=== PATIENT | female | born 1980 | race African-American/Black ===

== ENCOUNTER 2017-06-06 05:26 | Inpatient (IN) | payer BC, OTHER ==
[2017-06-02 15:47] VITALS: BMI 26.7
[2017-06-06] MEDS ORDERED: MIDAZOLAM HCL 2 MG/2 ML SINGLE DOSE VIAL ONE ×2 (09:32→09:33)
[2017-06-06] MEDS ORDERED: DEXAMETHASONE SOD PHOSPHATE/PF 10 MG/ML SDV ONE (09:36)
[2017-06-06] MEDS ORDERED: ROPIVACAINE HCL 0.5% 30ML VIAL ONE (09:36)
[2017-06-06] MEDS ORDERED: VASOPRESSIN 20 UNITS/ML VIAL IV ONE (10:04)
[2017-06-06] MEDS ORDERED: PROPOFOL 20 ML ONE (10:30)
[2017-06-06] MEDS ORDERED: ROCURONIUM BROMIDE 50 MG/5 ML VIAL ONE (10:30)
[2017-06-06] MEDS ORDERED: ceFAZolin SODIUM 1 GM VIAL IVPB ONE (10:32)
[2017-06-06] MEDS ORDERED: oxyCODONE HCL 5 MG TABLET PO PRN (10:34)
[2017-06-06] MEDS ORDERED: IBUPROFEN 800 MG/8 ML IJ IVPB PRN (10:34)
--- NOTE | 2017-06-06 10:34 | HP ---
History & Physical Update - History History: No Change - Physical Physical: No Change - Assessment Assessment: No Change - Plan Plan: No Change
[2017-06-06] MEDS ORDERED: DESFLURANE GAS 240 ML BOTTLE IH ONE (10:35)
--- NOTE | 2017-06-06 10:39 | OP ---
Operative Note - Note: Operative Date: 06/06/17 Pre-Operative Diagnosis: Submucosal myoma. anemia. menorrhagia. leiomyomatous uterus Operation: Abdominla myomectomy Post-Operative Diagnosis: Same as Pre-op Surgeon: Shagufta Palomino Library Circulation Clerk: Amy Forte Anesthesia: General Estimated Blood Loss (mls): 10 Operative Report Dictated: Yes
[2017-06-06] MEDS ORDERED: DEXAMETHASONE SOD PHOSPHATE 4 MG/1 ML VIAL ONE (10:43)
[2017-06-06] MEDS ORDERED: DEXTROSE 5%-LACTATED RINGERS 1,000 ML IV SCH (10:45)
[2017-06-06] MEDS ORDERED: ceFAZolin SODIUM 1 GM VIAL ONE (10:47)
[2017-06-06] MEDS ORDERED: GLYCOPYRROLATE 0.2 MG/1 ML VIAL ONE ×2 (11:08→11:17)
[2017-06-06] MEDS ORDERED: NEOSTIGMINE METHYLSULFATE 0.5 MG/ML - 10 ML MDV ONE (11:18)
[2017-06-06] MEDS ORDERED: PROMETHAZINE HCL 25 MG/1 ML VIAL IVPB PRN (11:50)
[2017-06-06] MEDS ORDERED: DEXAMETHASONE SOD PHOSPHATE 4 MG/1 ML VIAL IVPUSH PRN (11:50)
[2017-06-06] MEDS ORDERED: ONDANSETRON 4 MG/2 ML VIAL IVPUSH PRN (11:50)
[2017-06-06] MEDS ORDERED: LACTATED RINGERS SOLUTION 1,000 ML IV SCH (12:00)
[2017-06-06] MEDS: HYDROmorphone *PCA* 10MG/50ML DISP.SYRIN PCA SCH ×2 (12:15→14:31)
[2017-06-06] MEDS: CEFAZOLIN 2 GM/D5W 50 ML IVPB SCH (17:49)
[2017-06-06 18:51] LABS: MCH 21.8 pg (25.7-33.7); MCHC 29.9 g/dl (32.0-36.0); MEAN CELL VOLUME 73.1 fl (80-96); MEAN PLT VOLUME 9.4 fl (7.5-11.1); PLATELET COUNT 396 K/MM3 (134-434); RDW 29.3 % (11.6-15.6); WHITE BLOOD COUNT 13.1 K/mm3 (4.0-10.0)
[2017-06-06 21:33] LABS: ANISOCYTOSIS 3+; HYPOCHROMIA 2+; MACROCYTOSIS 1+; MICROCYTOSIS 2+; PLATELET ESTIMATE ADEQUATE (NORMAL)
[2017-06-07] MEDS: CEFAZOLIN 2 GM/D5W 50 ML IVPB SCH (01:07)
[2017-06-07 07:20] LABS: BASOPHIL 0.1 % (0-2.0); MCH 21.3 pg (25.7-33.7); MCHC 29.5 g/dl (32.0-36.0); MEAN CELL VOLUME 72.2 fl (80-96); MEAN PLT VOLUME 8.8 fl (7.5-11.1); NEUTROPHILS 81.1 % (42.8-82.8); PLATELET COUNT 388 K/MM3 (134-434)
--- NOTE | 2017-06-07 08:19 | OP ---
DATE OF OPERATION: 06/06/2017 PREOPERATIVE DIAGNOSES: Leiomyomatous uterus, menorrhagia, and anemia. OPERATION: Abdominal myomectomy. POSTOPERATIVE DIAGNOSES: Leiomyomatous uterus, menorrhagia, and anemia. SURGEON: Shagufta Palomino MD MORTGAGE LOAN CLOSER: Amy Forte DO ANESTHESIA: General. ANESTHESIOLOGIST: Alex More MD DESCRIPTION OF PROCEDURE: Patient was taken to the operating room, placed in supine position, prepped and draped in the usual sterile fashion. Starks catheter was inserted into the bladder. A timeout was performed in accordance to hospital regulation. After the patient was prepped and draped. A Pfannenstiel skin incision was made with a scalpel. Cautery was then used to go through the layers of abdominal wall to the level of the fascia. Fascia was cut in the midline. Cautery was then used to open the fascia in the following fashion. Charissa was then used to bluntly and sharply dissect the rectus muscles. Fascia muscle split in the midline. Peritoneal cavity was entered and carried upward and downward. Uterus exteriorized. A 6-cm submucosal myoma was palpated. Uterus was exteriorized, and tourniquet was placed on a clear space of the broad ligament. Pitressin was infiltrated, and a transverse anterior incision was made. Using blunt and sharp dissection, a 6- cm myoma was enucleated out. Endometrium was then closed separately carefully not placing suture within endometrium using 2-0 Vicryl. Intramuscular layer of the uterus was closed using 0 Vicryl suture, and serosa was then closed using 2-0 V-Loc suture. Hemostasis was achieved. Uterus interiorized. Interceed was placed. Abdominal cavity cleaned with clean lap pad. Abdominal sweep done. Peritoneum closed using 0 Vicryl suture. Fascia was then closed using 0 Vicryl suture in 2 parts. Muscle was approximated in midline using 0 Vicryl suture. Skin was then closed using 3-0 Vicryl in subcuticular fashion. Wound was washed and dressed. The patient tolerated the procedure well. Pack count was correct. ESTIMATED BLOOD LOSS: 10 mL Enma [id number] MTDD
[2017-06-07] MEDS ORDERED: HYDROmorphone HCL CARPU-JECT 1 MG/1 ML DISP.SYRIN IVPB PRN (08:21)
--- NOTE | 2017-06-07 08:21 | PN ---
Progress Note (short form) - Note Progress Note: Post op day#1.S/P Abdominal myomectomy under GA uneventful.Patient stable and c/ o pain score of 3-4/10.Will DC TEST DRIVER and put patient PRN pain medication.No any anesthesia related problem.Patient DC from the anesthesia care.
--- NOTE | 2017-06-07 09:17 | PN ---
Progress Note, Physician Chief Complaint: Pt seen/evaluated, doing well. Pain controlled. Tolerating clears. No flatus yet. Starks catheter in place draining clear yellow urine. Not yet ambulating. Denies CP/SOB/F/C/HUNT. NO other complaints. - Current Medication List Current Medications: Active Medications Dexamethasone Sodium Phosphate (Decadron Injection -) 4 mg IVPUSH ONCE PRN PRN Reason: NAUSEA AND/OR VOMITING Diphenhydramine HCl (Benadryl Injection -) 12.5 mg IVPUSH ONCE PRN PRN Reason: FOR ITCHING Last Admin: 06/06/17 12:35 Dose: 12.5 mg Enoxaparin Sodium (Lovenox -) 40 mg SQ DAILY ADRIÁN Fentanyl (Sublimaze Injection -) 50 mcg IVPUSH [id number] PRN PRN Reason: PAIN Stop: 06/09/17 11:51 Last Admin: 06/06/17 12:10 Dose: 50 mcg Hydromorphone HCl (Dilaudid Injection -) 1 mg IVPB Q4H PRN PRN Reason: PAIN Dextrose/Lactated Ringer's (D5-Lr -) 1,000 mls @ 125 mls/hr IV ASDIR ADRIÁN Last Admin: 06/06/17 12:15 Dose: 225 mls Lactated Ringer's (Lactated Ringers Solution) 1,000 mls @ 125 mls/hr IV ASDIR ADRIÁN Ibuprofen (Caldolor Injection -) 800 mg IVPB Q8H PRN PRN Reason: FEVER Oxycodone HCl (Roxicodone -) 5 mg PO Q4H PRN PRN Reason: PAIN Oxycodone HCl (Roxicodone -) 10 mg PO Q4H PRN PRN Reason: PAIN Promethazine HCl (Phenergan Injection -) 12.5 mg IVPB Q6H PRN PRN Reason: NAUSEA AND/OR VOMITING Simethicone (Mylicon -) 80 mg PO Q4H PRN PRN Reason: GAS - Objective Vital Signs: Vital Signs Temperature 98 F 06/07/17 08:46 Pulse Rate 61 06/07/17 08:46 Respiratory Rate 20 06/07/17 08:46 Blood Pressure 124/67 06/07/17 08:46 O2 Sat by Pulse Oximetry (%) 100 06/06/17 14:34 Constitutional: Yes: Well Nourished, No Distress, Calm Eyes: Yes: Conjunctiva Clear, EOM Intact HENT: Yes: Atraumatic, Normocephalic Neck: Yes: Supple, Trachea Midline Cardiovascular: Yes: Regular Rate and Rhythm Respiratory: Yes: Regular, CTA Bilaterally Gastrointestinal: Yes: Normal Bowel Sounds, Soft Wound/Incision: Yes: Clean/Dry, Well Approximated Neurological: Yes: Alert, Oriented Labs: CBC, BMP 06/07/17 06:30 Problem List - Problems (1) Status post myomectomy Code(s): Z98.890 - OTHER SPECIFIED POSTPROCEDURAL STATES (2) Anemia Code(s): D64.9 - ANEMIA, UNSPECIFIED Assessment/Plan 36 y/o POD#1 s/p abdominal myomectomy, stable and doing well - AFVSS - Hgb 7.6 post op - pt asymptomatic, will monitor. If heavy bleeding or becomes symptomatic will recheck CBC - advance diet as tolerated, PO pain meds - D/C SAGGER PREPARER - encourage ambulation
[2017-06-07] MEDS ORDERED: ENOXAPARIN NA (PORCINE) 40 MG/0.4 ML DISP.SYRIN SQ ONE (10:00)
[2017-06-07] MEDS ORDERED: PCA PUMP KEY 1 EACH EACH ONE (10:31)
--- NOTE | 2017-06-07 13:17 | PATH ---
Surgical Pathology Report Patient Name: RUIBA XIONG [facility]. Rec. #: [id number] /Age/Gender: 1980 (Age: 36) / F Account: [id number] Location: [facility] OBS/FILING OR REGISTRY CLERK Taken: 06/06/2017 Received: 06/06/2017 Reported: 06/07/2017 Physicians: Shagufta Palomino M.D. Specimen(s) Received FIBROIDS Clinical History Fibroids Final Diagnosis UTERUS, MYOMECTOMY: LEIOMYOMA, 97 GRAMS. Electronically Signed Balaji Dodson M.D. Gross Description Received in formalin labeled "fibroid," is a 97 g, 7.0 x 5.0 x 5.0 cm fibroid. Sectioning reveals soft landry parenchyma with a whorled architecture. No hemorrhage or necrosis is identified. Travograph Operator sections are submitted in 4 cassettes. DL/06/06/2017 saudi/06/06/2017
[2017-06-07] MEDS: SIMETHICONE 80 MG TAB.CHEW (FP) PO PRN ×3 (13:51→22:17)
[2017-06-07] MEDS: oxyCODONE HCL 5 MG TABLET PO PRN ×2 (18:31→22:17)
--- NOTE | 2017-06-07 22:31 | DS ---
Physical Exam-WEBSPHERE PORTAL ARCHITECT Vital Signs: Vital Signs Temperature 99.5 F 06/07/17 22:00 Pulse Rate 92 H 06/07/17 22:00 Respiratory Rate 18 06/07/17 22:00 Blood Pressure 126/75 06/07/17 22:00 O2 Sat by Pulse Oximetry (%) 99 06/07/17 21:00 Constitutional: Yes: Well Nourished, No Distress Neck: Yes: WNL Cardiovascular: Yes: WNL Gastrointestinal: Yes: WNL, Normal Bowel Sounds, Soft Extremities: Yes: WNL Edema: No Wound/Incision: Yes: Steri Strips, Open to air Labs: CBC, BMP 06/07/17 06:30 Discharge Summary Reason For Visit: SUBMUCOSAL MYOMA/ANEMIA/MENORRHAGIA Current Active Problems Anemia (Acute) Status post myomectomy (Acute) Procedures: Principal: Abdominal myomectomy Hospital Course: Unremarkable Condition: Good - Instructions Diet, Activity, Other Instructions: Dr. Shagufta Palomino Senior Php Web Developer discharge instructions Physical activity Resume your normal everyday activity as tolerated no heavy lifting or exercise until seen by your surgeon. You may walk unlimited zak of and climb stairs. You may resume driving the car when you feel safe and comfortable behind the wheel. No sexual activity as instructed by Dr. Palomino. Wound care If you have a bandage, leave it on, and keep dry for 48-72 hours. After that time discard the outer bandage. If they are tapes on the skin under the out of bandage leave them in place. They will peel off in the next 7 to 10 days. Do Not Peel them off. You may shower the day after surgery. If there are tapes present on the skin, you may shower over them. Diet There are no dietary restrictions. Eat healthy, high-fiber foods. Drink 6 to 8 glasses of liquid each day. This will assist in keeping your bowels are regular. Pain management You may take Tylenol or acetaminophen or Ibuprofen (for example, Motrin, Advil etc.) from my pain prescription medication is ordered should be taken as prescribed for moderate to severe pain. Call Dr. Palomino for any of the following: Severe pain not relieved by medication Fever of 101 or higher Excessive bleeding or drainage on dressing Inability to urinate Call the office at [phone] for an appointment in seven days. Disposition: HOME - Home Medications Comprehensive Discharge Medication List: Ambulatory Orders Aspirin/Acetaminophen/Caffeine [Excedrin Migraine Caplet] 2 each PO PRN PRN Ibuprofen [Advil -] 400 mg PO TID PRN 06/02/17 Iron,Carbonyl/Ascorbic Acid [Vitron-C Tablet] 1 each PO DAILY 06/06/17 Ibuprofen [Motrin -] 600 mg PO QID PRN #28 tablet 06/07/17
[2017-06-08] MEDS: SIMETHICONE 80 MG TAB.CHEW (FP) PO PRN (06:40)
[2017-06-08] MEDS: oxyCODONE HCL 5 MG TABLET PO PRN (06:40)
--- NOTE | 2017-06-08 07:03 | PN ---
Progress Note (SOAP) - Subjective Chief Complaint: Pt doing well desires to go home - Current Medications Current Medications: Active Medications Dexamethasone Sodium Phosphate (Decadron Injection -) 4 mg IVPUSH ONCE PRN PRN Reason: NAUSEA AND/OR VOMITING Diphenhydramine HCl (Benadryl Injection -) 12.5 mg IVPUSH ONCE PRN PRN Reason: FOR ITCHING Last Admin: 06/06/17 12:35 Dose: 12.5 mg Enoxaparin Sodium (Lovenox -) 40 mg SQ DAILY ADRIÁN Fentanyl (Sublimaze Injection -) 50 mcg IVPUSH [id number] PRN PRN Reason: PAIN Stop: 06/09/17 11:51 Last Admin: 06/06/17 12:10 Dose: 50 mcg Hydromorphone HCl (Dilaudid Injection -) 1 mg IVPB Q4H PRN PRN Reason: PAIN Dextrose/Lactated Ringer's (D5-Lr -) 1,000 mls @ 125 mls/hr IV ASDIR ADRIÁN Last Admin: 06/06/17 12:15 Dose: 225 mls Lactated Ringer's (Lactated Ringers Solution) 1,000 mls @ 125 mls/hr IV ASDIR ADRIÁN Ibuprofen (Caldolor Injection -) 800 mg IVPB Q8H PRN PRN Reason: FEVER Oxycodone HCl (Roxicodone -) 5 mg PO Q4H PRN PRN Reason: PAIN Last Admin: 06/07/17 13:51 Dose: 5 mg Oxycodone HCl (Roxicodone -) 10 mg PO Q4H PRN PRN Reason: PAIN Last Admin: 06/08/17 06:40 Dose: 10 mg Promethazine HCl (Phenergan Injection -) 12.5 mg IVPB Q6H PRN PRN Reason: NAUSEA AND/OR VOMITING Simethicone (Mylicon -) 80 mg PO Q4H PRN PRN Reason: GAS Last Admin: 06/08/17 06:40 Dose: 80 mg - Objective Vital Signs: Vital Signs Temperature 99.6 F 06/08/17 06:44 Pulse Rate 69 06/08/17 06:44 Respiratory Rate 18 06/08/17 06:44 Blood Pressure 132/69 06/08/17 06:44 O2 Sat by Pulse Oximetry (%) 99 06/07/17 21:00 Constitutional: Yes: Well Nourished, No Distress Gastrointestinal: Yes: WNL, Normal Bowel Sounds, Soft Extremities: Yes: WNL Edema: No Wound/Incision: Yes: Clean/Dry, Well Approximated, Steri Strips Neurological: Yes: WNL, Alert, Oriented Labs Lab Results: CBC, BMP 06/07/17 06:30
[2017-06-08] MEDS ORDERED: IBUPROFEN 600 MG TABLET (FP) PO PRN (07:33)
[2017-06-08 08:23] VITALS: BP 123/83; PULSE 85; TEMP 99.3
[2017-06-08 08:49] LABS: MCH 21.1 pg (25.7-33.7); MCHC 29.2 g/dl (32.0-36.0); MEAN CELL VOLUME 72.2 fl (80-96); MEAN PLT VOLUME 9.1 fl (7.5-11.1); PLATELET COUNT 420 K/MM3 (134-434); WHITE BLOOD COUNT 11.4 K/mm3 (4.0-10.0)
[2017-06-08] MEDS ORDERED: ENOXAPARIN NA (PORCINE) 40 MG/0.4 ML DISP.SYRIN SQ SCH (10:00)
== END 2017-06-08 09:30 | disposition home or self-care (01) | DRG 743 ==
LOC: JSAMEDAYSX 05:26 → EDSTATUS 10:00 → J3W 14:18
PROVIDERS: ADMIT Obstetrics & Gynecology; ATTEND Obstetrics & Gynecology
PROC: 0UB90ZZ Excision of Uterus, Open Approach (ICD-10-PCS; principal; 2017-06-06 10:00)
DX: D25.0 Submucous leiomyoma of uterus (principal); N92.0 Excessive and frequent menstruation with regular cycle; D64.9 Anemia, unspecified
CPT/HCPCS: 36415; 84703; 85025; 85027; 88305-TC; 94760

== ENCOUNTER 2019-02-26 10:00 | Inpatient (IN) | payer BC, OTHER ==
[2019-02-26] MEDS ORDERED: ELECTROLYTE-148 SOLN 500 ML IV ONE (10:33)
[2019-02-26] MEDS ORDERED: CITRIC ACID/SODIUM CITRATE 30 ML UNIT-DOSE CUP PO ONE (10:33)
--- NOTE | 2019-02-26 10:33 | HP ---
Past Medical History - Admission History of Present Illness: 38 y/o female with SIUP at 37.2 weeks here for scheduled delivery. Pt has h/o myomectomy and is also gestational HTN on Labetalol 400mg TID which is the indication for delivery at 37 weeks gestation. Pt denies HUNT/ RUQ pain or changes in vision. Most recent HELLP labs WNL. History Source: Patient, Medical Record Limitations to Obtaining History: No Limitations - Past Medical History Cardiovascular: Yes: HTN Pulmonary: No: Asthma Gastrointestinal: No: GERD Hepatobiliary: No: Hepatitis B Renal/: No: UTI Reproductive: Yes: Fibroids. No: PID, Polycystic Ovary Syndrome ...: 3 ...Para: 2 Heme/Onc: Yes: Anemia Infectious Disease: No: HIV, STD's Psych: No: Anxiety, Depression - Past Surgical History Hx Myomectomy: Yes Hx Transabdominal Cerclage: No - Smoking History Smoking history: Never smoked Have you smoked in the past 12 months: No - Alcohol/Substance Use Hx Alcohol Use: Yes (1-2/week) - Social History Usual Living Arrangement: Yes: With Spouse ADL: Independent History of Recent Travel: No Home Medications - Allergies Allergies/Adverse Reactions: Allergies Allergy/AdvReac Type Severity Reaction Status Date / Time No Known Allergies Allergy Verified 02/26/19 10:59 - Home Medications Home Medications: Ambulatory Orders Labetalol HCl [Normodyne -] 400 mg PO TID 12/20/18 Prenat 115/Iron Fum/Folic/Dss [ 19 Tablet] 1 tab PO DAILY 01/20/19 Review of Systems - Review of Systems Constitutional: reports: No Symptoms Eyes: reports: No Symptoms HENT: reports: No Symptoms Neck: reports: No Symptoms Cardiovascular: reports: No Symptoms Respiratory: reports: No Symptoms Gastrointestinal: reports: No Symptoms Genitourinary: reports: No Symptoms Breasts: reports: No Symptoms Reported Musculoskeletal: reports: No Symptoms Integumentary: reports: No Symptoms Neurological: reports: No Symptoms Endocrine: reports: No Symptoms Hematology/Lymphatic: reports: No Symptoms Physical Exam - Maternity Constitutional: Yes: Well Nourished, No Distress, Calm Eyes: Yes: EOM Intact HENT: Yes: Atraumatic Neck: Yes: Supple Cardiovascular: Yes: Regular Rate and Rhythm Lungs: Clear to auscultation - Abdominal Exam/OB Fundal Height: 37 Number of Fetuses: Single Presentation: Vertex Category: I - Vaginal Exam/OB Amniotic Membrane Status: Intact - Physical Exam Psychiatric: Yes: Alert, Oriented Hemorrhage Risk Assessment - Risk Factors Medium Risk Factors: Yes: Prior , uterine surgery,or multiple laparotomies Risk Score: 1 Risk Level: Medium Risk Problem List - Problems (1) Status post myomectomy Code(s): Z98.890 - OTHER SPECIFIED POSTPROCEDURAL STATES Assessment/Plan 38 y/o female with SIUP at 37.2 weeks here for scheduled delivery h/o myomectomy gestational HTN on Labetalol 400 TID NPO Starks Anesthesia to evaluate Nursery/Neonatology aware plan for scheduled c section
[2019-02-26 10:46] VITALS: BMI 31.4
[2019-02-26] MEDS ORDERED: OXYTOCIN 20 UNITS in 0.9% NS 20 UNIT/1,000 ML INFUS.BAG IV ONE (11:53)
[2019-02-26] MEDS ORDERED: METHYLERGONOVINE MALEATE 0.2 MG/1 ML AMP IM PRN (12:59)
[2019-02-26] MEDS: ELECTROLYTE-148 SOLN 1,000 ML IV SCH (13:05)
[2019-02-26] MEDS ORDERED: morphine SULFATE/PF 0.5 MG/ML (2cc Syringe - QUVA) ONE (13:13)
[2019-02-26] MEDS ORDERED: IBUPROFEN 600 MG TABLET (FP) PO PRN (13:26)
[2019-02-26] MEDS ORDERED: OXYTOCIN 10 UNITS/ML VIAL ONE (13:31)
[2019-02-26] MEDS ORDERED: ceFAZolin SODIUM 1 GM VIAL ONE (13:31)
[2019-02-26] MEDS ORDERED: LABETALOL HCL 200 MG TABLET (FP) PO SCH (14:00)
[2019-02-26] MEDS: OXYTOCIN 20 UNITS in 0.9% NS 20 UNIT/1,000 ML INFUS.BAG IV SCH (14:09)
[2019-02-26] MEDS: LABETALOL HCL 200 MG TABLET (FP) PO SCH ×2 (16:26→22:36)
--- NOTE | 2019-02-26 20:36 | OP ---
Operative Note - Note: Operative Date: 02/26/19 Pre-Operative Diagnosis: history of myomectomy, gestational HTN, AMA Operation: primary LTCS Post-Operative Diagnosis: Same as Pre-op Surgeon: Amy Forte Teletype Clerk: Roger Salazar Anesthesiologist/SCREW CUTTER: Abdirashid Roman Anesthesia: Spinal Specimens Removed: placenta Estimated Blood Loss (mls): 800 Operative Report Dictated: Yes
[2019-02-26] MEDS: IBUPROFEN 800 MG/8 ML IJ IVPB PRN (21:31)
[2019-02-27] MEDS: LABETALOL HCL 200 MG TABLET (FP) PO SCH ×3 (06:12→22:15)
[2019-02-27] MEDS: IBUPROFEN 800 MG/8 ML IJ IVPB PRN (08:00)
[2019-02-27 08:46] LABS: BASO % 0.1 % (0-2.0); EOS % 1.5 % (0-4.5); HEMOGLOBIN 10.3 GM/dL (10.7-15.3); LYMPH % 8.2 % (8-40); MCH 29.6 pg (25.7-33.7); MCHC 33.1 g/dl (32.0-36.0); MEAN CELL VOLUME 89.3 fl (80-96); MEAN PLT VOLUME 10.7 fl (7.5-11.1); MONO % 7.1 % (3.8-10.2); NEUT % 83.1 % (42.8-82.8); PLATELET COUNT 192 K/MM3 (134-434); RBC 3.47 M/mm3 (3.60-5.2); WHITE BLOOD COUNT 17.8 K/mm3 (4.0-10.0)
[2019-02-27] MEDS: PRENATAL VITAMINS W/ FOLIC ACID TABLET (FP) PO SCH (10:00)
--- NOTE | 2019-02-27 10:09 | PN ---
Post Progress Note - Subjective Subjective: 38 yo Para 3 with prior myomectomy, is status post primary . She's seen and evaluated, doing well. Post Day: 1 Type of Delivery: Primary C/S Vital Signs: Vital Signs Temperature 98.2 F 02/27/19 06:00 Pulse Rate 75 02/27/19 06:00 Respiratory Rate 18 02/27/19 09:00 Blood Pressure 111/70 02/27/19 06:00 O2 Sat by Pulse Oximetry (%) 98 02/26/19 14:55 Breast Exam: Yes: Soft Uterus: Yes: Fundus @ umbilicus Incision: Yes: Dressing dry and intact Abdomen/GI: Yes: Abdomen soft, Tolerating PO Lochia: Yes: Rubra Lochia, amount: Small Extremities: Yes: Calves non-tender Perineum: Yes: Intact Activity: Ambulating Problem List - Problems (1) Status post primary low transverse section Code(s): Z98.891 - HISTORY OF UTERINE SCAR FROM PREVIOUS SURGERY Assessment/Plan Status post primary Stable Continue routine post op care
[2019-02-27] MEDS: ELECTROLYTE-148 SOLN 1,000 ML IV SCH (12:42)
[2019-02-27] MEDS ORDERED: BISACODYL 10 MG SUPP.RECT RC PRN (12:59)
--- NOTE | 2019-02-27 14:18 | PN ---
Progress Note, Physician Chief Complaint: s/p csection post op day one History of Present Illness: under spinal anesthesia with duramorph for post op pain control - Current Medication List Current Medications: Active Medications Acetaminophen (Tylenol -) 650 mg PO Q4H PRN PRN Reason: PAIN LEVEL 1-5 Bisacodyl (Dulcolax Suppository -) 10 mg RC PRN PRN PRN Reason: CONSTIPATION Parenteral Electrolytes (Plasma-Lyte 148 -) 1,000 mls @ 125 mls/hr IV ASDIR [facility] Last Admin: 02/27/19 12:42 Dose: Not Given Oxytocin/Sodium Chloride (Normal Saline+20 Units Oxytocin -) 20 unit in 1,000 mls @ 125 mls/hr IV ASDIR [facility] Last Admin: 02/26/19 14:09 Dose: 125 mls/hr Ibuprofen (Motrin -) 600 mg PO Q4H PRN PRN Reason: PAIN LEVEL 1 - 3 Ibuprofen (Motrin -) 600 mg PO Q4H PRN PRN Reason: PAIN LEVEL 1-5 Ibuprofen (Caldolor Injection -) 800 mg IVPB Q8H PRN PRN Reason: PAIN SCALE 6-10 Last Admin: 02/27/19 08:00 Dose: 800 mg Labetalol HCl (Normodyne -) 400 mg PO TID [facility] Last Admin: 02/27/19 06:12 Dose: Not Given Methylergonovine Maleate (Methergine Injection -) 0.2 mg IM Q4H PRN PRN Reason: Excessive Bleeding (L&D) Oxycodone HCl (Roxicodone -) 5 mg PO Q4H PRN PRN Reason: PAIN LEVEL 4 - 6 Oxycodone HCl (Roxicodone -) 10 mg PO Q4H PRN PRN Reason: PAIN LEVEL 7 - 10 Multivit/Folic Acid/Iron ( Vitamins (Sjr) -) 1 tab PO DAILY [facility] Last Admin: 02/27/19 10:00 Dose: 1 tab Simethicone (Mylicon -) 80 mg PO Q4H PRN PRN Reason: GAS - Objective Vital Signs: Vital Signs Temperature 98.2 F 02/27/19 06:00 Pulse Rate 76 02/27/19 10:00 Respiratory Rate 18 02/27/19 12:00 Blood Pressure 123/73 02/27/19 10:00 O2 Sat by Pulse Oximetry (%) 98 02/26/19 14:55 Constitutional: Yes: Well Nourished Cardiovascular: Yes: WNL Respiratory: Yes: WNL Gastrointestinal: Yes: WNL Labs: CBC, BMP 02/27/19 07:37 Assessment/Plan No adverse effect of anesthetic, pain controlled, dept of anesthesiology will sign off care at this time
[2019-02-27] MEDS: IBUPROFEN 600 MG TABLET (FP) PO PRN (15:36)
[2019-02-27] MEDS: SIMETHICONE 80 MG TAB.CHEW (FP) PO PRN ×2 (15:36→20:28)
[2019-02-27] MEDS: oxyCODONE HCL 5 MG TABLET PO PRN ×2 (15:37→20:28)
[2019-02-27] MEDS: OXYTOCIN 20 UNITS in 0.9% NS 20 UNIT/1,000 ML INFUS.BAG IV SCH (16:06)
[2019-02-27] MEDS: ACETAMINOPHEN 325 MG TABLET (FP) PO PRN (20:28)
[2019-02-28] MEDS: oxyCODONE HCL 5 MG TABLET PO PRN ×3 (00:58→18:14)
[2019-02-28] MEDS: ACETAMINOPHEN 325 MG TABLET (FP) PO PRN (00:58)
[2019-02-28] MEDS: SIMETHICONE 80 MG TAB.CHEW (FP) PO PRN ×3 (00:59→18:13)
[2019-02-28] MEDS: LABETALOL HCL 200 MG TABLET (FP) PO SCH ×3 (06:00→21:36)
[2019-02-28] MEDS: PRENATAL VITAMINS W/ FOLIC ACID TABLET (FP) PO SCH (10:39)
[2019-02-28] MEDS: IBUPROFEN 600 MG TABLET (FP) PO PRN ×2 (12:04→18:13)
--- NOTE | 2019-02-28 12:34 | PN ---
Post Progress Note Post Day: 2 Type of Delivery: Primary C/S Vital Signs: Vital Signs Temperature 97.4 F L 02/28/19 09:30 Pulse Rate 93 H 02/28/19 09:30 Respiratory Rate 20 02/28/19 09:30 Blood Pressure 109/63 02/28/19 09:30 O2 Sat by Pulse Oximetry (%) 98 02/26/19 14:55 Breast Exam: Yes: Soft Uterus: Yes: Fundus Firm Incision: Yes: Sutures intact Abdomen/GI: Yes: Abdomen soft, Abdominal Distention, Passing flatus, Tolerating PO. No: Tender Lochia: Yes: Rubra Lochia, amount: Small Extremities: Yes: Calves non-tender, Edema (trace b/l LE edema, nonpitting) Perineum: Yes: Intact Activity: Ambulating - Labs Labs: CBC WBC 17.8 K/mm3 (4.0-10.0) H 02/27/19 07:37 RBC 3.47 M/mm3 (3.60-5.2) L 02/27/19 07:37 Hgb 10.3 GM/dL (10.7-15.3) L 02/27/19 07:37 Hct 31.0 % (32.4-45.2) L 02/27/19 07:37 MCV 89.3 fl (80-96) 02/27/19 07:37 MCH 29.6 pg (25.7-33.7) 02/27/19 07:37 MCHC 33.1 g/dl (32.0-36.0) 02/27/19 07:37 RDW 15.0 % (11.6-15.6) 02/27/19 07:37 Plt Count 192 K/MM3 (134-434) 02/27/19 07:37 MPV 10.7 fl (7.5-11.1) 02/27/19 07:37 Absolute Neuts (auto) 14.8 K/mm3 (1.5-8.0) H 02/27/19 07:37 Neutrophils % 83.1 % (42.8-82.8) H D 02/27/19 07:37 Lymphocytes % 8.2 % (8-40) D 02/27/19 07:37 Monocytes % 7.1 % (3.8-10.2) 02/27/19 07:37 Eosinophils % 1.5 % (0-4.5) 02/27/19 07:37 Basophils % 0.1 % (0-2.0) D 02/27/19 07:37 Nucleated RBC % 0 % (0-0) 02/27/19 07:37 Problem List - Problems (1) Status post myomectomy Code(s): Z98.890 - OTHER SPECIFIED POSTPROCEDURAL STATES (2) Gestational hypertension affecting third Code(s): O13.9 - GESTATIONAL HTN W/O SIGNIFICANT PROTEINURIA, UNSP TRIMESTER Assessment/Plan 38 y/o POD#2 s/p primary c section at 37 weeks for gHTn and h/o myomectomy pt doing well OOB ambulating without issue voiding passing flatus, +FM continue regular diet, ambulation, PO pain meds gHTN - continue labetalol prn BP > 140/90 continue present managment
--- NOTE | 2019-02-28 16:14 | OP ---
DATE OF OPERATION: 02/26/2019 PREOPERATIVE DIAGNOSES: Single intrauterine at 37 weeks gestation, a history of abdominal myomectomy, gestational hypertension, and advanced maternal age. POSTOPERATIVE DIAGNOSES: Single intrauterine at 37 weeks gestation, a history of abdominal myomectomy, gestational hypertension, and advanced maternal age. PROCEDURE: Primary low-transverse section. SURGEON: Amy Forte MD RN FACULTY: LUCIA Barlow ANESTHESIA: Spinal by Dr. Abdirashid Roman. ESTIMATED BLOOD LOSS: 800 mL. SPECIMENS REMOVED: Placenta. FINDINGS: Normal bilateral tubes and ovaries, live female . COUNTS: Sponge, needle, and instrument count correct. DISPOSITION: Stable to PACU. BRIEF HISTORY AND PROCEDURE: Patient is a 38-year-old female who was admitted to [facility] on February 26, 2019, with an intrauterine at 37-2/7 weeks gestation. She has a history of abdominal myomectomy and gestational hypertension, was scheduled for a section that date. The consents for the procedure were signed upon admission. She was then taken back to the operating room and given spinal anesthesia by Dr. Abdirashid Roman and placed in the dorsal supine position on the table. A Starks catheter was placed under sterile conditions. She was prepped and draped in the usual sterile fashion and a hard timeout was performed. A Pfannenstiel skin incision was created in the skin with a scalpel and carried to the underlying layer of rectus fascia sharply. The fascia was incised on either side of the midline sharply and the fascial incision was carried in a superolateral direction sharply. The fascia was tented upward and dissected off the underlying layer of rectus muscle sharply, and the musculature was identified in the midline and laterally. The peritoneum was entered bluntly to allow for adequate room for delivery. A bladder blade was then inserted. A transverse incision on the lower uterine segment was completed and extended in a superolateral direction bluntly. The infant was then delivered from the left occiput transverse position. Bilateral shoulders and remainder of delivered with ease. The cord was clamped twice and cut in between. The infant was taken over to the warmer to be assessed by the neonatology staff without were present for the delivery. The placenta was delivered manually, was noted to have a 3-vessel cord. The uterus was exteriorized from the abdomen, inspected, and cleared of all amniotic membrane and debris with a dry lap sponge. Bilateral tubes and ovaries were noted to be normal. The hysterotomy was reapproximated using a double-layer closure using 1 Vicryl in a running locked fashion, 2nd layer using 0 Biosyn in a running imbricating fashion. Excellent hemostasis was achieved. The posterior cul-de-sac was suctioned of any blood clot. The uterus was placed back into the abdomen. Bilateral gutters were inspected and cleared of all blood clots with a moist lap. The hysterotomy again was noted to be hemostatic. The tubes and ovaries were noted to be normal. The peritoneum was reapproximated using 2-0 chromic in a running fashion. The musculature was reapproximated with 2 interrupted sutures, 1 using leftover 2-0 chromic, a 2nd using 0 Biosyn. The fascia was reapproximated using 1 Vicryl in a running fashion. The subcutaneous tissue was irrigated and reapproximated using 1 Vicryl, and the skin was reapproximated in a subcuticular fashion using 3-0 Vicryl, and Steri-Strips were applied. The patient tolerated the procedure well, is recovering in stable condition in the PACU after the procedure. AMY FORTE DO /[id number]
[2019-03-01] MEDS: ACETAMINOPHEN 325 MG TABLET (FP) PO PRN (04:23)
[2019-03-01] MEDS: oxyCODONE HCL 5 MG TABLET PO PRN (04:23)
[2019-03-01] MEDS: SIMETHICONE 80 MG TAB.CHEW (FP) PO PRN (04:23)
[2019-03-01] MEDS: LABETALOL HCL 200 MG TABLET (FP) PO SCH ×2 (06:36→08:43)
[2019-03-01 08:09] LABS: BASO % 0.1 % (0-2.0); EOS % 3.2 % (0-4.5); HEMATOCRIT 25.2 % (32.4-45.2); HEMOGLOBIN 8.4 GM/dL (10.7-15.3); LYMPH % 15.9 % (8-40); MCHC 33.3 g/dl (32.0-36.0); MEAN CELL VOLUME 90.1 fl (80-96); MEAN PLT VOLUME 10.2 fl (7.5-11.1); MONO % 8.5 % (3.8-10.2); NEUT % 72.3 % (42.8-82.8); RDW 14.8 % (11.6-15.6); WHITE BLOOD COUNT 10.8 K/mm3 (4.0-10.0)
[2019-03-01 08:36] LABS: PLATELET COUNT 200 K/MM3 (134-434)
--- NOTE | 2019-03-01 09:07 | DS ---
Physical Exam-MANAGER NC Vital Signs: Vital Signs Temperature 98.8 F 02/28/19 21:38 Pulse Rate 77 03/01/19 06:36 Respiratory Rate 20 03/01/19 06:36 Blood Pressure 134/84 03/01/19 06:36 O2 Sat by Pulse Oximetry (%) 98 02/26/19 14:55 Constitutional: Yes: Well Nourished, No Distress, Calm HENT: Yes: Atraumatic Respiratory: Yes: Regular Gastrointestinal: Yes: Normal Bowel Sounds, Soft, Distention (slight distention , soft, +bowel sounds, +flatus +BM) ....Post : Yes: Uterus firm, Uterus non-tender Edema: LLE: Trace, RLE: Trace (nonpitting) Wound/Incision: Yes: Clean/Dry, Well Approximated Neurological: Yes: Alert, Oriented Psychiatric: Yes: Alert, Oriented Labs: CBC, BMP 03/01/19 07:33 Delivery - Delivery Section: Primary, Low Flap Transverse Type of Anesthesia: Spinal Episiotomy/Laceration: None EBL (cc): 800 Delivery, Single - Stages of Labor Date of Delivery: 02/26/19 Time of Delivery: 13:35 Time Placenta Delivered: 13:36 Placenta: Yes: Manual Removal - 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 The patient had an uncomplicated delivery. She had known gestational HTN, was on labetalol 400mg TID prior to admission. She continued on that regimen throughout the admission and her blood pressures were normal to mild range throughout her stay. Pt was stable on day 3 and discharged home on labetalol with instructions to check blood pressure at home TID and hold medication for BP < 140/90. Pt to f/u in office in 1 week for incision check and BP evaluation. Condition: Good - Instructions Diet, Activity, Other Instructions: Physical activity Resume your normal everyday activity as tolerated no heavy lifting or exercise until seen by your surgeon. You may walk unlimited amounts and climb stairs. You may resume driving the car when you feel safe and comfortable behind the wheel. No sexual activity as instructed for 6 weeks. Wound care If there are tapes on the skin under the out of bandage leave them in place. They will peel off in the next 7 to 10 days. Do Not Peel them off. You may shower the day after surgery. If there are tapes present on the skin, you may shower over them. Diet There are no dietary restrictions. Eat healthy, high-fiber foods. Drink 6 to 8 glasses of liquid each day. This will assist in keeping your bowels regular. Pain management You may take Tylenol for mild pain and you can take any prescription medication that is sent to your pharmacy for moderate to severe pain. Try to only use NSAIDs such as Motrin/Aleve/Advil/Ibuprofen only if absolutely necessary as they can increase your blood pressure. Call MD for any of the following: Severe pain not relieved by medication Fever of 101 or higher Excessive bleeding or drainage on dressing Inability to urinate Headache/upper abdominal pain/changes or spots in vision Referrals: Amy Forte DO [Staff Physician] - 1 Week Disposition: HOME - Home Medications Comprehensive Discharge Medication List: Ambulatory Orders Labetalol HCl [Normodyne -] 400 mg PO TID 12/20/18 Prenat 115/Iron Fum/Folic/Dss [ 19 Tablet] 1 tab PO DAILY 01/20/19
[2019-03-01] MEDS: PRENATAL VITAMINS W/ FOLIC ACID TABLET (FP) PO SCH (11:04)
[2019-03-01 13:51] VITALS: BP 140/90; PULSE 78; TEMP 98
--- NOTE | 2019-03-02 16:22 | PATH ---
Surgical Pathology Report Patient Name: RUBIA XIONG Med. Rec. #: [id number] /Age/Gender: 1980 (Age: 38) / F Account: [id number] Location: [facility] OBS/HEARING THERAPIST Taken: 02/27/2019 Received: 02/27/2019 Reported: 03/02/2019 Physicians: Amy Forte M.D. Specimen(s) Received PLACENTA Clinical History , 2003 and 2010, myomectomy 2016 History of blood transfusion prior to myomectomy, iron infusions during , PIH, possible IUGR Final Diagnosis PLACENTA, SECTION: 402 G THIRD TRIMESTER PLACENTA, TRIVASCULAR UMBILICAL CORD WITH TRUE KNOT, AND UNREMARKABLE PLACENTAL MEMBRANES. Electronically Signed Hilda Fallon M.D. Gross Description The specimen is received fresh labeled placenta and is a 402 gram, 15.0 x 13.0 x 2.8 cm. placenta with attached membranes and umbilical cord. The attached membranes are landry, thick, cloudy and insert marginally. The umbilical cord measures 42 cm. in length and averages 0.9 cm. in diameter. The cord inserts eccentrically, 3.5 cm. to the nearest margin. There is a true knot present in the umbilical cord. Cut surface of the umbilical cord reveals 3 vessels. The surface is patel-blue with minimal fibrin deposition and appropriate caliber vessels. The maternal surface is red-brown with focal defects. Sectioning reveals red-brown, spongy parenchyma. No lesions are identified. Pediatric Psychologist sections are submitted in three cassettes as follows: 1- membrane rolls and umbilical cord; 2-3- full thickness sections of placenta. /03/01/2019 [facility]03/01/2019
== END 2019-03-01 14:00 | disposition home or self-care (01) | DRG 788 ==
LOC: JLDR 10:00 → J3W 15:49
PROVIDERS: ADMIT Obstetrics & Gynecology; ATTEND Obstetrics & Gynecology
PROC: 10D00Z1 Extraction of Products of Conception, Low, Open Approach (ICD-10-PCS; principal; 2019-02-26)
DX: O34.219 Maternal care for unspecified type scar from previous cesarean delivery (principal); O13.4 Gestational [pregnancy-induced] hypertension without significant proteinuria, complicating childbirth; Z3A.37 37 weeks gestation of pregnancy; Z37.0 Single live birth
CPT/HCPCS: 36415; 85025; 88307-TC